=== PATIENT | female | born 1965 | race Caucasian/White ===

== ENCOUNTER → 2017-05-16 | Outpatient (CLI) | payer BC, MEDICARE ==
[~2017-05-16] MED LIST: CYMBALTA30 MG PO; INDERAL20 MG PO; LISINOPRIL-HCTZ1 T14 PO; NEURONTIN100 MG PO; VOLTAREN50 MG PO; ZANAFLEX2 M1 PO
--- NOTE | ~2017-05-16 | MY29 ---
[facility] A Service of [facility] RADIOLOGY TEXT RESULTS PATIENT: CHAYITO BURNS LOCATION: [facility] : 63 UNIT #: [id number] AGE: [address]: Nia Wharton MD SEX: F ORDER DR: [id number] [facility] [address] [place], [place] [address] [id number] O MR#: [id number] Acc #: [id number] NAME: CHAYITO BURNS. : 1965 SEX: F STUDY DATE/TIME: 05/16/2017 12:45 UNIT: [facility] ROOM: STUDY DESCRIPTION: MY [facility] SCREENING W/ CAD BILAT Attending Physician: Nia Wharton M.D. Referring Physician: Nia Wharton M.D. Ordering Physician: Nia Wharton M.D. Primary Care Physician: Nia Wharton M.D. MEDICAL IMAGING REPORT This report is preliminary unless electronic signature is present EXAM Digital screening mammogram 05/16/2017 HISTORY 52-year-old, no risk elevation. Annual screening. COMPARISON STUDIES 10/10/2013, 01/28/2016. FINDINGS Digital imaging of each breast was completed utilizing a two-view examination of each breast in craniocaudal and mediolateral-oblique projections. Review and interpretation of digital mammograms include a second review in conjunction with FDA-approved CAD device. There is a normal parenchymal presentation bilaterally consistent with the patient's age. There are no breast masses imaged and no parenchymal asymmetry is visualized. There are no suspicious microcalcifications and I see no focal architectural disturbance. Breast parenchyma is fatty replaced. IMPRESSION Negative screening digital mammogram. One-year followup recommended. Patients over the age of 40 are entered into a reminder system with target due date for the next mammogram. A result letter will also be sent to the patient. BIRADS: 1 Negative Dictated by... [facility] A Service [facility] RADIOLOGY TEXT RESULTS PATIENT: CHAYITO BURNS LOCATION: [facility] : 63 UNIT #: [id number] AGE: [address]: Nia Wharton MD SEX: F ORDER DR: Carlos Machuca M.D. THIS IS AN ELECTRONICALLY VERIFIED REPORT Carlos Machuca M.D. at 05/17/2017 8:04 AM JBB/pcl TD: 05/16/2017 20:48 JOB #: [id number] MEDICAL IMAGING REPORT Page 1 of 1 COPY
== END | disposition home or self-care (01) ==
LOC: CWCC 11:44
DX: Z12.31 Encounter for screening mammogram for malignant neoplasm of breast (principal)
CPT/HCPCS: G0202